=== PATIENT | female | born 1950 | race Hispanic/Latino ===

== ENCOUNTER 2019-09-29 03:22 | Inpatient (IN) | payer OTHER ==
[~2019-09-29] VITALS: Ht 152.4 cm; Wt 54.4 kg
[~2019-09-29 03:22] MED LIST: SIME80 PO
[2019-09-29 06:14] LABS: BASOPHILS % (AUTO) 0.2 % (0.0-5.0); EOSINOPHILS % (AUTO) 0.6 % (0.0-8.0); LYMPHOCYTES % (AUTO) 6.1 % (21.0-51.0); MEAN CORPUSCULAR HEMOGLOBIN 31.9 pg (27.0-33.0); MEAN CORPUSCULAR HGB CONC 33.6 g/dL (32.0-36.0); MEAN CORPUSCULAR VOLUME 94.9 fL (79-99); MONOCYTES % (AUTO) 3.4 % (3.0-13.0); NEUTROPHILS % (AUTO) 88.1 % (40.0-77.0); NUCLEATED RED BLOOD CELLS 0.3 % (0.0-0.19); PLATELET COUNT (AUTO) 478 K/uL (130-400); RED BLOOD CELL COUNT(AUTO) 2.95 MIL/uL (4.00-5.50); RED CELL DISTRIBUTION WIDTH 13.7 % (11.0-15.5); WHITE BLOOD COUNT (AUTO) 10.4 K/uL (4.8-10.8)
[2019-09-29] MEDS ORDERED: ZOSYN 3.375GM+NS 50ML 50 ML IV ONE ×3 (06:31→20:58)
[2019-09-29 06:34] LABS: CREATININE 0.5 mg/dL (0.5-1.5); POTASSIUM 4.3 mmol/L (3.5-5.1)
[2019-09-29] MEDS ORDERED: SODIUM CHLORIDE 0.9% 1000ML 1,000 ML IV SCH (09:46)
[2019-09-29] MEDS ORDERED: ACETAMINOPHEN 325 MG TAB PO PRN ×2 (10:00)
[2019-09-29] MEDS ORDERED: ZOLPIDEM TARTRATE 5 MG TAB PO PRN (10:00)
[2019-09-29] MEDS ORDERED: ONDANSETRON HCL 4 MG/2 ML VIAL IV PRN (10:00)
[2019-09-29] MEDS ORDERED: ERGOCALCIFEROL (VITAMIN D2) 50,000 UNIT CAPSULE PO SCH (10:00)
[2019-09-29] MEDS ORDERED: AZITHROMYCIN 500MG+NS 250ML 250 ML IV SCH (10:00)
[2019-09-29] MEDS ORDERED: METHYLPREDNISOLONE SOD SUCC 40MG/ML 1ML ONE ×2 (11:21→20:58)
[2019-09-29] MEDS ORDERED: ERGOCALCIFEROL (VITAMIN D2) 50,000 UNIT CAPSULE ONE (11:21)
[2019-09-29] MEDS ORDERED: FAMOTIDINE/PF 20 MG/2 ML VIAL IV ONE ×2 (11:22→20:59)
[2019-09-29] MEDS ORDERED: ZOSYN 3.375GM+NS 50ML 50 ML IV SCH (13:00)
[2019-09-29] MEDS ORDERED: METHYLPREDNISOLONE SOD SUCC 40MG/ML 1ML IVP SCH (14:00)
[2019-09-29] MEDS ORDERED: FAMOTIDINE/PF 20 MG/2 ML VIAL IV SCH (21:00)
[2019-09-29] MEDS ORDERED: EPINEPHRINE 0.1 MG/ML 10 ML SYG IVP ONE (21:48)
[2019-09-29] MEDS ORDERED: ALBUTEROL INHALER 90MCG/INH IH ONE (22:22)
[2019-09-29] MEDS ORDERED: ENOXAPARIN SODIUM 30 MG/0.3 ML SQ ONE (22:23)
[2019-09-30] VITALS: BP 104/53
[2019-09-30] MEDS ORDERED: ALBUTEROL INHALER 90MCG/INH IH SCH
[2019-09-30 04:00] VITALS: BP 124/70
[2019-09-30 04:48] LABS: BASOPHILS % (AUTO) 0.1 % (0.0-5.0); HEMATOCRIT 26.3 % (36-48); LYMPHOCYTES % (AUTO) 5.1 % (21.0-51.0); MEAN CORPUSCULAR HEMOGLOBIN 31.3 pg (27.0-33.0); MEAN CORPUSCULAR HGB CONC 31.9 g/dL (32.0-36.0); MEAN CORPUSCULAR VOLUME 98.1 fL (79-99); MONOCYTES % (AUTO) 1.9 % (3.0-13.0); NEUTROPHILS % (AUTO) 90.8 % (40.0-77.0); NUCLEATED RED BLOOD CELLS 0.3 % (0.0-0.19); PLATELET COUNT (AUTO) 480 K/uL (130-400); RED BLOOD CELL COUNT(AUTO) 2.68 MIL/uL (4.00-5.50); RED CELL DISTRIBUTION WIDTH 14.2 % (11.0-15.5); WHITE BLOOD COUNT (AUTO) 14.3 K/uL (4.8-10.8)
[2019-09-30 05:08] LABS: % IRON SATURATION 11.3 % (22-44)
[2019-09-30] MEDS ORDERED: ZOSYN 3.375GM+NS 50ML 50 ML IV ONE ×2 (05:10→13:32)
[2019-09-30 05:12] LABS: ALBUMIN 1.8 g/dL (3.5-5.0); BILIRUBIN,DIRECT 0.1 mg/dL (0.0-0.3); BILIRUBIN,TOTAL 0.4 mg/dL (0.2-1.0); CREATININE 0.8 mg/dL (0.5-1.5); POTASSIUM 4.3 mmol/L (3.5-5.1); TOTAL PROTEIN, SERUM 6.9 g/dL (6.0-8.3)
[2019-09-30 08:05] LABS: CRP QUANTITATIVE 465.5 mg/L (0.00-9.0)
[2019-09-30] MEDS ORDERED: METHYLPREDNISOLONE SOD SUCC 40MG/ML 1ML ONE ×2 (08:05→13:32)
[2019-09-30] MEDS ORDERED: ENOXAPARIN SODIUM 30 MG/0.3 ML SQ ONE (08:06)
[2019-09-30] MEDS ORDERED: ZINC SULFATE 220 CAPSULE ONE (08:06)
[2019-09-30] MEDS ORDERED: ASCORBIC ACID 500 MG TAB ONE (08:06)
[2019-09-30] MEDS ORDERED: FAMOTIDINE/PF 20 MG/2 ML VIAL IV ONE (08:08)
[2019-09-30] MEDS ORDERED: ENOXAPARIN SODIUM 30 MG/0.3 ML SQ SCH (09:00)
[2019-09-30] MEDS ORDERED: ASCORBIC ACID 500 MG TAB PO SCH (09:00)
[2019-09-30] MEDS ORDERED: ZINC SULFATE 220 CAPSULE PO SCH (09:00)
[2019-09-30] MEDS ORDERED: AZITHROMYCIN 500MG+NS 250ML 250 ML IV ONE (11:53)
[2019-09-30] MEDS ORDERED: LORAZEPAM 2 MG/ML 1 ML VIAL ONE (14:17)
[2019-09-30] MEDS ORDERED: IOHEXOL 350 MG/ML 100ML INFUS..BTL IV ONE (15:23)
[2019-09-30 17:16] LABS: ABG BASE EXCESS -21.4 mmol/L (-2.0-3.0); ABG HCO3 8.8 mmol/L (21.0-28.0); ABG OXYGEN SATURATION 97.8 % (95.0-99.0); ABG PCO2 35 mmHg (32-45)
[2019-09-30] MEDS ORDERED: SODIUM BICARB 50MEQ 50ML VIAL ONE ×2 (17:57→20:15)
[2019-09-30] MEDS ORDERED: VANCOMYCIN 1GM+NS 250ML 250 ML IV ONE (18:00)
[2019-09-30] MEDS ORDERED: SODIUM BICARB 8.4% 50ML SYRINGE IVP SCH (18:00)
[2019-09-30] MEDS ORDERED: VANCOMYCIN PROTOCOL PER PHARMACY IV SCH (18:00)
[2019-09-30] MEDS ORDERED: SODIUM BICARB 8.4% 50ML SYRING 150 MEQ in DEXTROSE 5%-WATER 1,000 ML IV SCH (18:00)
[2019-09-30] MEDS ORDERED: CEFEPIME HCL 2 GM VIAL IVP SCH (18:00)
[2019-09-30] MEDS ORDERED: PHENYLEPHRINE HCL 50 MG in SODIUM CHLORIDE 0.9% 250 ML IV PRN (18:15)
[2019-09-30] MEDS ORDERED: FUROSEMIDE 10 MG/ML 4ML VIAL IV SCH (18:15)
[2019-09-30] MEDS ORDERED: FENTANYL 2500MCG+NS 250ML 250 ML IV PRN (18:15)
[2019-09-30] MEDS ORDERED: PROPOFOL 1000 MG/100 ML 100 ML IV SCH (18:15)
[2019-09-30] MEDS ORDERED: ASPIRIN 325MG EC TAB 325 MG TABLET.DR PO SCH (18:15)
[2019-09-30] MEDS ORDERED: PROPOFOL 1000 MG/100 ML 100 ML IV ONE ×2 (18:18→18:20)
[2019-09-30] MEDS ORDERED: POTASSIUM CHLORIDE 20 MEQ ERTAB PO PRN ×2 (18:30→19:15)
[2019-09-30] MEDS ORDERED: DEXTROSE 50%-WATER 50 ML DISP.SYRIN IV PRN (18:30)
[2019-09-30] MEDS ORDERED: GLUCAGON 1MG KIT 1 MG ML IM PRN (18:30)
[2019-09-30] MEDS ORDERED: LIDOCAINE HCL-MPF 1% 2ML VIAL IV PRN (18:30)
[2019-09-30] MEDS ORDERED: POTASSIUM CHLORIDE 20MEQ/100ML 100 ML IV PRN (18:30)
[2019-09-30] MEDS ORDERED: SODIUM CHLORIDE 0.9% 1000ML 1,000 ML IV SCH (18:30)
[2019-09-30] MEDS ORDERED: POTASSIUM CHLORIDE 10% ELIXIR 20 MEQ/15 ML UDCUP PO PRN (18:30)
[2019-09-30] MEDS ORDERED: PHENYLEPHRINE HCL 50 MG/NS 250ML IV PRN ×2 (19:00)
[2019-09-30 19:02] LABS: ABG BASE EXCESS -13.4 mmol/L (-2.0-3.0); ABG HCO3 10.7 mmol/L (21.0-28.0); ABG OXYGEN SATURATION 98.4 % (95.0-99.0); ABG PCO2 21 mmHg (32-45)
[2019-09-30] MEDS ORDERED: FENTANYL 1000MCG+NS 100ML 0 ML ONE (19:23)
[2019-09-30] MEDS ORDERED: FENTANYL 1000MCG+NS 100ML IV.SOLN IV SCH (19:30)
[2019-09-30] MEDS ORDERED: INSULIN REGULAR 100 UNIT in SODIUM CHLORIDE 0.9% 100 ML IV SCH (19:45)
[2019-09-30 20:01] LABS: CREATININE 1.3 mg/dL (0.5-1.5); POTASSIUM 5.6 mmol/L (3.5-5.1)
[2019-09-30] MEDS ORDERED: NOREPINEPHRINE 4MG/NS 250ML 250 ML IV ONE (20:15)
[2019-09-30] MEDS ORDERED: NOREPINEPHRINE 4MG/NS 250ML IV SCH (20:30)
[2019-09-30] MEDS ORDERED: ENOXAPARIN SODIUM 60 MG/0.6 ML SQ ONE (20:52)
[2019-09-30] MEDS ORDERED: SODIUM BICARBONATE 650 MG TAB PO SCH (21:00)
[2019-09-30] MEDS ORDERED: INSULIN HUMULIN R 100 UNIT/ML 3ML SQ SCH (21:00)
[2019-09-30] MEDS ORDERED: ENOXAPARIN SODIUM 60 MG/0.6 ML SQ SCH (21:00)
[2019-09-30 21:30] LABS: ABG BASE EXCESS -30.7 mmol/L (-2.0-3.0); ABG HCO3 3.3 mmol/L (21.0-28.0); ABG PCO2 21 mmHg (32-45)
[2019-09-30] MEDS ORDERED: VASOPRESSIN 20 UNITS/ML 1ML VIAL ONE (21:35)
[2019-09-30] MEDS ORDERED: SODIUM CHLORIDE 0.9% 250 ML IV ONE (21:36)
[2019-09-30] MEDS ORDERED: EPINEPHRINE 1 MG/ML AMPULE ONE (21:39)
[2019-10-01] MEDS ORDERED: INSULIN R NPO SSI SQ SCH
[2019-10-01] MEDS ORDERED: VANCOMYCIN 500MG+NS 100ML 100 ML IV SCH (06:00)
[2019-10-01] MEDS ORDERED: ASPIRIN 325MG EC TAB 325 MG TABLET.DR PO SCH (09:00)
== END 2019-09-30 21:49 | disposition expired | DRG 871 ==
LOC: EDH 03:22 → EDHIP 09:46
PROVIDERS: ADMIT Hospitalist; ATTEND Hospitalist
PROC: 5A12012 Performance of Cardiac Output, Single, Manual (ICD-10-PCS; principal; 2019-09-30)
PROC: 5A1935Z Respiratory Ventilation, Less than 24 Consecutive Hours (ICD-10-PCS; 2019-09-30)
PROC: 5A09357 Assistance with Respiratory Ventilation, Less than 24 Consecutive Hours, Continuous Positive Airway Pressure (ICD-10-PCS; 2019-09-30)
PROC: 0BH17EZ Insertion of Endotracheal Airway into Trachea, Via Natural or Artificial Opening (ICD-10-PCS; 2019-09-30)
DX: A41.89 Other specified sepsis (principal); U07.1 COVID-19; J96.01 Acute respiratory failure with hypoxia; J12.89 Other viral pneumonia; I21.4 Non-ST elevation (NSTEMI) myocardial infarction; E11.10 Type 2 diabetes mellitus with ketoacidosis without coma; E87.2 Acidosis; F32.9 Major depressive disorder, single episode, unspecified; E78.5 Hyperlipidemia, unspecified; E03.9 Hypothyroidism, unspecified; D64.9 Anemia, unspecified; E11.65 Type 2 diabetes mellitus with hyperglycemia; E78.00 Pure hypercholesterolemia, unspecified; I46.9 Cardiac arrest, cause unspecified
CPT/HCPCS: 31500; 36415; 36600; 71045; 71275; 80048; 80076; 82010; 82435; 82728; 82803; 82947; 82948; 83540; 83550; 83605; 83880; 84132; 84145; 84295; 84484; 85018; 85025; 85378; 86140; 86900; 86901; 87040; 92950; 93005; 94002; 94660; 99291; G0378; J0171; J0456; J1650; J1815; J2060; J2543; J2704; J2920; J3010; J3370; J3490; J7050; J7070; Q9967; U0003